=== PATIENT | female | born 1995 ===

== ENCOUNTER 2018-03-18 20:34 | Emergency (ER) | payer OTHER ==
[~2018-03-18] VITALS: Ht 162.6 cm; Wt 61.2 kg
--- NOTE | 2018-03-18 21:08 | NUR ---
Patient to room 3A for privacy and examination. Female production miner (BRENDA Dennis Statistical Assistant) accompanied female patient for EXAM (Dr. Beal).
[2018-03-18 21:09] LABS: *BILIRUBIN,URIN NEGATIVE (NEGATIVE); *BLOOD, URINE NEGATIVE (NEGATIVE); *CLARITY,URINE CLOUDY (CLEAR); *COLOR,URINE YELLOW (YELLOW); *KETONES,URINE TRACE (NEGATIVE); *UROBILINOGEN,URINE 0.2 E.U./dl (NORMAL); LEUKOCYTE ESTERASE ,URINE 1+ (NEGATIVE); NITRITE, URINE NEGATIVE (NEGATIVE); UGLUCOSE NEGATIVE (NEGATIVE)
[2018-03-18 21:12] LABS: *URINE HCG, QUAL NEGATIVE (NEGATIVE)
[2018-03-18 21:24] LABS: SQUAMOUS EPITHELIAL CELL,UR FEW /HPF (NONE SEEN); URINE AMORPHOUS PHOSPHATES MANY /HPF
[2018-03-18 21:25] LABS: MUCUS,URINE MODERATE /LPF (0-FEW)
--- NOTE | 2018-03-18 21:45 | NUR ---
Patient discharged to home in stable conditon. Written and verbal after care instructions given. Patient verbalizes understanding of instructions.
== END 2018-03-18 21:45 | disposition home or self-care (01) ==
LOC: ER 20:36
DX: N39.0 Urinary tract infection, site not specified (principal); N76.0 Acute vaginitis; B37.3 Candidiasis of vulva and vagina
CPT/HCPCS: 84703; A4663